=== PATIENT | male | born 1970 | race Caucasian/White ===

== ENCOUNTER 2021-09-29 06:26 | Emergency (ER) | payer MEDICARE ==
[~2021-09-29] VITALS: Ht 182.9 cm; Wt 115.0 kg
[2021-09-29 08:23] LABS: HEMOGLOBIN 15.3 g/dl (14.0-18.0); IMMATURE GRANULOCYTES 0.8 % (0.0-5.0); MEAN CELL VOLUME 85.3 fL CALC (80.0-100.0); MEAN CORPUSCULAR HGB 29.7 pG CALC (26.0-32.0); MEAN CORPUSCULAR HGB CONC 34.8 g/dL CAL (32.0-36.0); NEUT# 4.24 thou/uL (1.82-7.42); RED BLOOD COUNT 5.16 mill/uL (4.70-6.10); RED CELL DISTRI WIDTH 12.7 % (11.5-15.5)
[2021-09-29 08:46] LABS: ALBUMIN 4.4 g/dL (3.2-5.0); ALKALINE PHOSPHATASE 59 u/l (38-126); ANION GAP 13 (6-22 (CALC)); BILIRUBIN, TOTAL 1.1 mg/dL (0.0-1.4); BUN 11 mg/dL (9-20); BUN/CREATININE RATIO 12 (12-20 (CALC)); CARBON DIOXIDE 25 mmol/l (22-30); CHLORIDE 105 mmol/l (95-108); CREATININE 0.9 mg/dL (0.7-1.3); GFR > 60 ML/MIN (>=60 (CALC)); GFR FOR AFR.AMER. > 60 ML/MIN (>=60 (CALC)); LIPASE 92 u/l (23-300); POTASSIUM 4.4 mmol/l (3.5-5.1); SGOT/AST 26 u/l (17-59); SODIUM 139 mmol/l (137-146)
[2021-09-29 10:04] LABS: URINE BILIRUBIN - DIPSTICK NEGATIVE (NEGATIVE); URINE BLOOD DIPSTICK MODERATE (NEGATIVE); URINE COLOR YELLOW; URINE GLUCOSE - DIPSTICK NEGATIVE (NEGATIVE); URINE KETONE NEGATIVE (NEGATIVE); URINE LEUK ESTERASE NEGATIVE (NEGATIVE); URINE PROTEIN - DIPSTICK NEGATIVE (NEG-TRACE); URINE SPECIFIC GRAVITY 1.015; URINE UROBILINOGEN - DIPSTICK 0.2 E.U./dL (0.2)
[2021-09-29 10:12] LABS: URINE NITRITE - DIPSTICK NEGATIVE (Negative)
[2021-09-29] MEDS ORDERED: TORADOL PO (10:31)
[2021-09-29] MEDS ORDERED: DOXYCYCL HYC100 M4 PO (10:31)
[2021-09-29] MEDS ORDERED: TAMSULOSIN0.4 MG PO (10:31)
[2021-09-29] MEDS ORDERED: HYDROCO/APAP1 TA9 PO (10:31)
[2021-09-29 10:38] VITALS: BP 121/70
== END 2021-09-29 10:45 | disposition home or self-care (01) ==
LOC: ED 06:26
PROVIDERS: Family Medicine
DX: N13.2 Hydronephrosis with renal and ureteral calculous obstruction (principal); J06.9 Acute upper respiratory infection, unspecified; E66.9 Obesity, unspecified
CPT/HCPCS: Q9967